=== PATIENT | male | born 1995 | race Caucasian/White ===

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

== ENCOUNTER 2017-12-10 09:01 | Emergency (ER) | payer OTHER ==
[2017-12-10] MEDS: KETOROLAC TROMETHAMINE 10 MG TAB PO (09:37)
== END 2017-12-10 09:45 | disposition home or self-care (01) ==
LOC: M ED 09:01
DX: S39.011A Strain of muscle, fascia and tendon of abdomen, initial encounter (principal); X58.XXXA Exposure to other specified factors, initial encounter; Y92.89 Other specified places as the place of occurrence of the external cause; F17.210 Nicotine dependence, cigarettes, uncomplicated
CPT/HCPCS: 99282

== ENCOUNTER 2018-04-22 00:13 | Emergency (ER) | payer OTHER ==
[2018-04-22] MEDS: FLUORESCEIN OPHTH 1 MG STRIP OS (00:59)
[2018-04-22] MEDS: NORCO, ANEXSIA 5/325MG TABLET (HYDROcodone/ACETAMINOPHEN) PO (01:12)
[2018-04-22] MEDS: KETOROLAC 60 MG/2 ML VIAL (J1885) IM (01:38)
[2018-04-22] MEDS: CIPROFLOXACIN 0.3% OPHTH OINTMENT OS (01:50)
== END 2018-04-22 01:57 | disposition home or self-care (01) ==
LOC: M ED 00:13
DX: S05.02XA Injury of conjunctiva and corneal abrasion without foreign body, left eye, initial encounter (principal); X58.XXXA Exposure to other specified factors, initial encounter; Y92.099 Unspecified place in other non-institutional residence as the place of occurrence of the external cause; Y93.89 Activity, other specified; Y99.9 Unspecified external cause status; Z72.0 Tobacco use; Z79.899 Other long term (current) drug therapy
CPT/HCPCS: J1885